=== PATIENT | female | born 1945 | race Caucasian/White ===

== ENCOUNTER → 2017-11-27 09:49 | Outpatient (CLI) | payer OTHER, SELFPAY ==
--- NOTE | 2017-11-27 | DI.CT.S_ITS ---
PROCEDURE: CT LUMBAR SPINE WO CON INDICATIONS: PARS DEFECT L5-S1 TECHNIQUE: Noncontrast 3 mm thick sections acquired from the T12 level to the sacrum. Sagittal and coronal reformats were constructed. For radiation dose reduction, the following was used: automated exposure control. COMPARISON: None. FINDINGS: Image quality: Excellent. Bones: There is normal bony alignment. No acute vertebral body compression fractures. No suspicious lytic or blastic bony lesions. Central spinal caliber is of normal overall caliber. No pars defects. T12-L1: Disc height is normal. No central stenosis. No neural foraminal narrowing. L1-L2: Disc height is normal. Minimal, diffuse disc bulge. No central stenosis. No neural foraminal narrowing. L2-L3: Slight loss of disc height. Mild diffuse disc bulge. Mild narrowing of the central canal. Mild bilateral neural foraminal narrowing. No definite neural impingement. L3-L4: Loss of disc height. Endplate osteophytosis. Endplate sclerosis and subchondral cyst formation. Moderate, diffuse disc bulge. Mild bilateral facet hypertrophy. Mild to moderate narrowing of the central canal. Moderate to severe right and mild left neural foraminal narrowing with slight flattened deformity exiting right L3 nerve root. L4-L5: Disc height is normal. Mild, diffuse disc bulge. Mild bilateral facet hypertrophy. Mild ligamentum flavum hypertrophy. Moderate narrowing of the central canal. Moderate to severe right and mild left neural foraminal narrowing with slight flattened deformity exiting right L4 nerve root. L5-S1: Disc height is normal. Mild, diffuse disc bulge. Mild bilateral facet hypertrophy. No central stenosis. Mild bilateral neural foraminal narrowing. No definite neural impingement. Soft tissues: No retroperitoneal masses or hematomas. Visualized aorta is normal in caliber. Scattered atherosclerotic calcifications involving the visualized abdominal and pelvic vasculature. IMPRESSION: 1. Moderate to severe L3-L4 degenerative disc disease. Moderate L2-L3 degenerative disc disease. Mild L1-L2, L4-L5 and L5-S1 degenerative disc disease. 2. Mild bilateral L3-L4, L4-L5 and L5-S1 facet arthropathy. 3. Moderate L4-L5 central canal narrowing. Mild to moderate L3-L4 central canal narrowing. Mild L2-L3 central canal narrowing. 4. Moderate to severe right and mild left L3-L4 and L4-L5 neural foraminal narrowing. Mild bilateral L2-L3 and L5-S1 neural foraminal narrowing. 5. Slight flattened deformity of the exiting right L3 nerve root and the exiting right L4 nerve root secondary to neural foraminal narrowing. Please correlate with clinical data. 6. No pars interarticularis defects. Dictated by: Hoa Feng MD, PhD on 11/27/2017 at 15:36 Approved by: Hoa Feng MD, PhD on 11/27/2017 at 15:53
== END ==
PROVIDERS: PCP Family Medicine; Visit Provider Neurological Surgery
DX: M51.36 Other intervertebral disc degeneration, lumbar region (principal); M51.37 Other intervertebral disc degeneration, lumbosacral region; M48.061 Spinal stenosis, lumbar region without neurogenic claudication; M99.73 Connective tissue and disc stenosis of intervertebral foramina of lumbar region
CPT/HCPCS: 72131

== ENCOUNTER 2018-09-09 08:00 | Outpatient (CLI) | payer OTHER, SELFPAY ==
[2018-09-09] VITALS (8 sets, daily range): BP systolic 133–165; BP diastolic 57–103; PULSE 60–66; RESP 16; TEMP 36.4; O2SAT 96–100
--- NOTE | 2018-09-09 08:01 | DI.RAD.S_ITS ---
PROCEDURE: PAIN L/S TRANSFORAMINAL INJECT INDICATIONS: RADICULOPATHY FINDINGS: Fluoroscopic spot filming was performed to verify placement of spinal needles at the level(s) as labeled on the films. Appropriate location(s) of the needle tip(s) was confirmed by injection of iodinated contrast. IMPRESSION: Fluoroscopy for pain management. Dictated by: Ramos Dc M.D. on 09/09/2018 at 14:33 Approved by: Ramos Dc M.D. on 09/09/2018 at 14:33
[2018-09-09] MEDS: diphenhydrAMINE 50 MG/ML VIAL IV (08:51)
--- NOTE | 2018-09-09 09:29 | PM.PROC.1 ---
Procedures Date/Time Date of procedure: 09/09/18 Time of procedure: 09:49 General Procedure description: PROVIDER: Marin Jha DO Operative Note PREOP DIAGNOSIS 1. FORAMINAL STENOSIS WITH LE SYMPTOMS, POST OP DIAGNOSIS 1. FORAMINAL STENOSIS WITH LE SYMPTOMS, PROCEDURES 1. FLUOROSCOPICALLY GUIDED CONTRAST CONTROLLED TRANSFORAMINAL EPIDURAL STEROID INJECTION - LEFT L3/4 TFESI SURGEON: Marin Jha DO INDICATIONS Yelitza is referred by Dr. Guajardo for treatment of Foraminal Stenosis with left LE Symptoms FINDINGS Foraminal Nerve Root Compression secondary to disc disease and facet hypertrophy DESCRIPTION OF PROCEDURE Following review of allergy and review of potential side effects and complications, including, but not necessarily limited to, infection, allergic reaction, local tissue breakdown, stroke, temporary or permanent nerve injury, paralysis, and possible , the patient indicated that the patient understood and agreed to proceed. An informed consent document was signed by the patient, witnessed by a nurse, and placed in the patient's chart. Additionally, other treatment options including medications, modalities, and physical therapy were reviewed with the patient. Due to her hx of previous iodine allergy she was premedicated with 50mg of Benadryl IV. After review of previous anaesthesic history and IV conscious sedation the patient was deemed safe to proceed with todays procedure with IV conscious sedation as ASA class II designation. Safety time-out was performed to confirm patient ID, procedure to be performed and site of procedure. IV sedation was accomplished with a combination of 1mg of Versed was administered by the RN after DO order, titrated to patient comfort during the course of the procedure while the patient remained responsive to all verbal commands In the prone position following sterile prep and drape of the lumbar region, the left L3/4 posterior neuroforamen was identified fluoroscopically. The skin was anesthetized via a 25-gauge 1.5-inch needle with 1% lidocaine solution. At this point, a 25-gauge 3.5-inch spinal needle was atraumatically introduced and advanced under fluoroscopic guidance through the posterior left L3/4 neuroforamen to approximately the anterior aspect of the canal. Depth was confirmed on lateral view. Following negative aspiration, injection of approximately 1.5 cc of Isovue 200 under live fluoroscopy in the AP view confirmed excellent flow along the nerve root, into the epidural space without vascular or intrathecal uptake observed Radiological data, including multiple fluoroscopic views of the lumbosacral spine, reveal a spinal needle at the left L3/4 posterior neuroforamen. Subsequent views show flow of contrast material flowing superiorly and inferiorly along the nerve root confirming epidural flow. Subsequently, a test dose of 1.5 cc of 1% lidocaine solution was administered and patient was observed for two minutes for signs or symptoms of complications, including abdominal pain, shortness of breath, bilateral upper or lower extremity weakness, nausea and vomiting, prior to steroid injection. At this point, a total of 3cc or 18mg of betamethasone was injected without incident. The patient tolerated the procedure well without signs or symptoms of complications prior to transfer to the recovery area continued monitoring without incident. The patient was then transferred to the recovery area where they were observed for an appropriate time after the injection. The patient reported a VAS score of 7 prior to the procedure and a post-procedure VAS of 0. Total Fluoroscopy Time: 24.2 seconds Total Conscious Sedation Time: 24min POST OP INSTRUCTIONS The patient was provided a Pain Log to continue to record their response to the target-specific procedure prior to follow-up visit with their referring physician. Additionally, specific post-injection care instructions and a contact number to our office were provided if concerns arise regarding possible complications associated with the procedure are suspected. Marin Jha, Complications: none
[2018-09-09] MEDS: MIDAZOLAM 5 MG/5 ML VIAL IV (09:41)
[2018-09-09] MEDS: IOPAMIDOL 15 ML VIAL 3 ML INJ (09:47)
[2018-09-09] MEDS: BUPIVACAINE 0.25% (PF) VIAL 2 ML INJ (09:47)
[2018-09-09] MEDS: BETAMETHASONE 30 MG/5 ML MDV 12 MG INJ (09:47)
--- NOTE | 2018-09-09 09:48 | PC.NURSE ---
ASSISTING PT OFF TABLE AND TRANSPORTING TO POST PROC AREA IN STABLE CONDITION
--- NOTE | 2018-09-09 09:55 | PC.NURSE ---
pt returned from procedure a little drowsy. The pre medication Benadryl make her groggy prior to procedure. pt able to transfer from w/c to chair with 2 person minimal assist. Resumed monitoring from Patsy NELSON.
== END 2018-09-09 10:45 ==
LOC: RAD 08:01
PROVIDERS: PCP Family Medicine; Visit Provider Physical Medicine & Rehabilitation
DX: M48.061 Spinal stenosis, lumbar region without neurogenic claudication (principal); M51.16 Intervertebral disc disorders with radiculopathy, lumbar region
CPT/HCPCS: 64483; 99152; J0702; J1200; J2250; J3010

== ENCOUNTER 2019-03-12 12:50 | Outpatient (CLI) | payer OTHER, SELFPAY ==
[2019-03-12] VITALS (7 sets, daily range): BP systolic 104–147; BP diastolic 53–80; PULSE 65–68; RESP 16–18; TEMP 36.2; O2SAT 96–100
--- NOTE | 2019-03-12 12:51 | DI.RAD.S_ITS ---
PROCEDURE: PAIN L INTERLAMINAR/CAUDAL INJ INDICATIONS: SPONDYLOSIS FINDINGS: Fluoroscopic spot filming was performed to verify placement of spinal needles at the L3-L4 level(s), as labeled on the films. Appropriate location(s) of the needle tip(s) was confirmed by injection of iodinated contrast. IMPRESSION: Fluoroscopy for pain management. Dictated by: Ramos Dc M.D. on 03/12/2019 at 15:51 Approved by: Ramos Dc M.D. on 03/12/2019 at 15:51
[2019-03-12] MEDS: MIDAZOLAM 5 MG/5 ML VIAL IV (14:04)
[2019-03-12] MEDS: BETAMETHASONE 30 MG/5 ML MDV 6 MG INJ (14:07)
[2019-03-12] MEDS: BUPIVACAINE 0.25% (PF) VIAL 2 ML INJ (14:07)
[2019-03-12] MEDS: DEXAMETHASONE 10 MG/ML VIAL 20 MG INJ (14:07)
--- NOTE | 2019-03-12 14:09 | PC.NURSE ---
ASSISTING PT OFF TABLE AND TRANSPORTING TO POST PROC AREA IN STABLE CONDITION. PASSING RN CARE OF PT OFF TO GERDA Gonzáles RN. PREPARED AND ADMINISTERED VERSED. ALL OTHER MEDS PREPARED AND ADMINISTERED BY DR. ALONZO.
--- NOTE | 2019-03-12 14:17 | P.PCN_ITS ---
Procedures Date/Time Date of procedure: 03/12/19 Time of procedure: 14:17 General Procedure description: POST OP DIAGNOSIS 1. HNP WITH RADICULAR FEATURES, 2. MULTILEVEL CENTRAL STENOSIS, PROCEDURES 1. FLUORSCOPICALLY GUIDED CONTRAST CONTROLLED INTERLAMINAR EPIDURAL STEROID INJECTION - L3/4 PHYSICIAN: Marin Jha DO INDICATIONS is referred by for treatment of Bilateral Foraminal Stenosis L>R LE symptoms. FINDINGS Multilevel Central Spinal Stenosis with Nerve Root Compression DESCRIPTION OF PROCEDURE Fluoroscopically guided, contrast-controlled L3/4 translaminar epidural steroid injection. Following review of allergy and review of potential side effects and complications, including, but not necessarily limited to, infection, allergic reaction, local tissue breakdown, temporary as well as permanent nerve injury, paralysis, stroke and possible , the patient indicated that the patient understood and agreed to proceed. An informed consent document was signed by the patient, witnessed by a nurse, and placed in the patient's chart. Additionally, other treatment options including modalities, medications, and physical therapy were reviewed with the patient. After review of previous anaesthesic history and IV conscious sedation the patient was deemed safe to proceed with todays procedure with IV conscious sedation as ASA class II designation. Safety time-out was performed to confirm patient ID, procedure to be performed and site of procedure. IV sedation was accomplished with a combination of 2mg of Versed was administered by the RN after DO order, titrated to patient comfort during the course of the procedure while the patient remained responsive to all verbal commands. In the prone position, following sterile prep and drape of the lumbar region, the L3/4 translaminar space was identified fluoroscopically. The skin was anesthetized via a 25-gauge, 1.5-inch needle with 1% lidocaine solution. At this point, a 22-gauge short bevel spinal needle was atraumatically introduced and advanced under fluoroscopic guidance into the region of the L3/4 translaminar space. Depth was confirmed on lateral view. Radiological data, including multiple fluoroscopic views of the lumbar spine, reveal a spinal needle at the L3/4 translaminar space. Lateral views then show placement of the needle in the epidural space. Subsequent views do not reveal contrast due to patient allergy although no vascular or intrathecal uptake is observed. At this point, using loss of resistance technique with saline and air, the epidural space was entered. This was confirmed following negative aspiration w ithout injection of approximately of Isovue 200 due to patient allergy concerns. At this point, 1 cc of 1% lidocaine solution combined with 3cc or 20mg of dexamethasone and 6mg of betamethasone was injected without incident. The patient tolerated the procedure well without signs or symptoms of complications prior to transfer to the recovery area continued monitoring without incident. The patient was then transferred to the recovery area where they were observed for an appropriate period of time after the injection. The patient reported a VAS score of 6 prior to the procedure and a post- procedure VAS of 1. Total Fluoroscopy Time: 11.8 seconds Total Conscious Sedation Time: 24min POST OP INSTRUCTIONS The patient was provided a Pain Log to continue to record their response to the target-specific procedure prior to follow-up visit with their referring physician. Additionally, specific post-injection care instructions and a contact number to our office were provided if concerns arise regarding possible complications associated with the procedure are suspected. Marin Jha, Complications: none
== END 2019-03-12 15:12 | disposition home or self-care (01) ==
LOC: RAD 12:51
PROVIDERS: Visit Provider Physical Medicine & Rehabilitation
DX: M51.16 Intervertebral disc disorders with radiculopathy, lumbar region (principal); M48.061 Spinal stenosis, lumbar region without neurogenic claudication
CPT/HCPCS: 62323; 99152; J0702; J1100; J2250; J3010

== ENCOUNTER → 2020-04-08 10:48 | Outpatient (CLI) | payer OTHER, SELFPAY ==
--- NOTE | 2020-04-08 10:50 | DI.RAD.S_ITS ---
PROCEDURE: XR LUMBAR SPINE MIN 4V INDICATIONS: CHRONIC BACK PAIN TECHNIQUE: 5 views of the lumbar spine were acquired. COMPARISON: None. FINDINGS: Bones: No fracture. Trace anterolisthesis of L5 on S1. Multilevel degenerative endplate sclerosis and spurring. Diffuse facet arthropathy. Moderate narrowing of the L3-L4 disc narrowing. Partially visualized lateral curvature of the spine. Soft tissues: Scattered vascular calcifications seen in the aorta. Oblique images: No pars defects. IMPRESSION: Multilevel lumbar spondylosis most pronounced at L3-L4 as above Facet arthropathy Dictated by: Be Mcpherson M.D. on 04/08/2020 at 11:59 Approved by: Be Mcpherson M.D. on 04/08/2020 at 12:01
== END ==
PROVIDERS: PCP Physician Assistant Medical; Referring Provider Physical Medicine & Rehabilitation; Visit Provider Physical Medicine & Rehabilitation
DX: M47.27 Other spondylosis with radiculopathy, lumbosacral region (principal); M47.26 Other spondylosis with radiculopathy, lumbar region; M48.061 Spinal stenosis, lumbar region without neurogenic claudication; G89.29 Other chronic pain
CPT/HCPCS: 72110; 99213